=== PATIENT | male | born 1940 | race Caucasian/White ===

== ENCOUNTER 2022-06-07 16:17 | Inpatient (IN) | payer OTHER ==
[~2022-06-07] VITALS: Ht 180.3 cm; Wt 83.9 kg
[~2022-06-07 16:17] MED LIST: ASPI81CH PO; CILOSTAZOL50 M1 PO; CLOP75 PO; IRBESARTAN-HCT1 EAC3 PO; SIMV40 PO
[2022-06-07 16:46] LABS: BASOPHILS ABSOLUTE AUTO 0.01 K/mm3 (0.00-0.23); BASOPHILS PERCENT AUTO 0 % (0-2); EOSINOPHILS PERCENT AUTO 0 % (0-6); Hematocrit 48.8 % (37.0-53.0); Hemoglobin 16.5 g/dL (13.5-17.5); IMMATURE GRAN ABSOLUTE AUTO 0.05 K/mm3 (0.00-0.10); IMMATURE GRAN PERCENT AUTO 1 % (0-1); LYMPHOCYTES ABSOLUTE AUTO 0.62 K/mm3 (0.84-5.20); LYMPHOCYTES PERCENT AUTO 8 % (21-46); MONOCYTES ABSOLUTE AUTO 0.57 K/mm3 (0.16-1.47); MONOCYTES PERCENT AUTO 7 % (4-13); Mean Corpuscular HGB 31.1 pg (26.0-34.0); Mean Corpuscular HGB Conc 33.8 g/dL (31.5-36.5); Mean Corpuscular Volume 92 fL (80-100); Mean Platelet Volume 10.5 fL (9.1-12.4); NEUTROPHILS ABSOLUTE AUTO 6.93 K/mm3 (1.96-9.15); NEUTROPHILS PERCENT AUTO 85 % (41-73); Platelet Count 238 K/mm3 (150-400); RDW Coefficient Variation 14.1 % (11.7-14.2); RDW Standard Deviation 47.8 fL (35.1-46.3); Red Blood Cell Count 5.31 M/mm3 (4.30-5.90); White Blood Cell Count 8.18 K/mm3 (4.00-11.30)
[2022-06-07 17:12] LABS: Albumin, Blood 2.7 g/dL (3.4-5.0); Albumin/Globulin Ratio 0.6 (0.8-1.8); Bilirubin, Total 1.3 mg/dL (0.1-1.0); Bun/Creatinine Ratio 13.8 (12.0-20.0); Calcium, Blood 8.5 mg/dL (8.5-10.1); Creatinine, Blood 1.45 mg/dL (0.60-1.20); Globulin, Blood 4.4 g/dL (2.2-4.0); Potassium, Blood 3.4 mmol/L (3.5-5.5); Total Protein, Blood 7.1 g/dL (6.4-8.2)
[2022-06-07 17:27] LABS: Influenza A, PCR NEGATIVE (NEGATIVE); Influenza B, PCR NEGATIVE (NEGATIVE); Resp Syncytial Virus, PCR NEGATIVE (NEGATIVE)
[2022-06-07 17:34] LABS: SARS-Cov-2 (COVID-19) PCR, MMC POSITIVE (NEGATIVE)
[2022-06-07 18:15] LABS: PCO2 Arterial 25.3 mmHg (35-45); PO2 Arterial 59.7 mmHg (80-100); pH Blood Arterial 7.51 (7.35-7.45)
[2022-06-07] MEDS ORDERED: Bisoprolol Fumar5 MG PO (20:41)
--- NOTE | 2022-06-08 03:14 | NUR ---
SHIFT SUMMARY; PATIENT WAS AN ER ADMIT AT BEGINNING OF NOC SHIFT. HE IS AO X 4. PER REPORT HE CAME FROM HOME VIA EMS. HE WAS SOB AND PER NEIGHBORS WAS CONFUSED. HE IS COVID POSITIVE AND COMPLAINS OF SOB. HE IS CURRENTLY ON 3 LITERS O2. HE DOES NOT HAVE ANY SKIN ISSUES. HIS LUNGS ARE COARSE THROUGHOUT AND HE IS USING PURSED LIP BREATHING. HE USES HIS CALL LIGHT AND IS ABLE TO MAKE HIS NEEDS KNOWN. HE TAKES HIS PILLS WHOLE WITH WATER. HE RECEIVED A STAT CT SCAN TO CHECK FOR PE'S.
[2022-06-08 06:14] LABS: BASOPHILS ABSOLUTE AUTO 0.02 K/mm3 (0.00-0.23); BASOPHILS PERCENT AUTO 0 % (0-2); EOSINOPHILS PERCENT AUTO 0 % (0-6); Hematocrit 45.8 % (37.0-53.0); Hemoglobin 15.5 g/dL (13.5-17.5); IMMATURE GRAN ABSOLUTE AUTO 0.03 K/mm3 (0.00-0.10); IMMATURE GRAN PERCENT AUTO 0 % (0-1); LYMPHOCYTES ABSOLUTE AUTO 0.63 K/mm3 (0.84-5.20); LYMPHOCYTES PERCENT AUTO 9 % (21-46); MONOCYTES ABSOLUTE AUTO 0.48 K/mm3 (0.16-1.47); MONOCYTES PERCENT AUTO 7 % (4-13); Mean Corpuscular HGB Conc 33.8 g/dL (31.5-36.5); Mean Corpuscular Volume 92 fL (80-100); NEUTROPHILS ABSOLUTE AUTO 6.02 K/mm3 (1.96-9.15); NEUTROPHILS PERCENT AUTO 84 % (41-73); Platelet Count 240 K/mm3 (150-400); RDW Coefficient Variation 14.1 % (11.7-14.2); RDW Standard Deviation 48.1 fL (35.1-46.3); White Blood Cell Count 7.18 K/mm3 (4.00-11.30)
[2022-06-08 07:29] LABS: Albumin, Blood 2.5 g/dL (3.4-5.0); Albumin/Globulin Ratio 0.6 (0.8-1.8); Bilirubin, Total 0.9 mg/dL (0.1-1.0); Bun/Creatinine Ratio 15.5 (12.0-20.0); Calcium, Blood 8.7 mg/dL (8.5-10.1); Creatinine, Blood 1.29 mg/dL (0.60-1.20); Globulin, Blood 4.3 g/dL (2.2-4.0); Potassium, Blood 3.7 mmol/L (3.5-5.5); Total Protein, Blood 6.8 g/dL (6.4-8.2)
--- NOTE | 2022-06-08 17:53 | NUR ---
SHIFT SUMMARY PT A&OX4 AND PLEASANT. PT VERBAILZED FEELING "BETTER TODAY" STATING THAT HE HAD MORE STRENGHT IN HIS LEGS AND WAS FEELING LESS SOB. NO C/O PAIN. PT ATE VERY LITTLE BUT STATED THAT IS WAS MORE THAN HE HAS BEEN EATING FOR THE PAST FEW DAYS. PT ABLE TO AMBULATE TO BATHROOM WITH STANDBY ASSIST. BED IN LOWEST POSITION AND CALL LIGHT IN REACH.
--- NOTE | 2022-06-09 04:43 | NUR ---
SHIFT SUMMARY: Pt A/Ox4 and call light appropriate. Pt c/o SOB especially with ambulating. He is currently on 3L NC to maintain O2 saturations >92%. He denies nausea, dizziness, pain, numbness/tingling. He has been having diarrhea. He is ambulating SBA.
[2022-06-09 05:08] LABS: BASOPHILS PERCENT AUTO 0 % (0-2); EOSINOPHILS PERCENT AUTO 0 % (0-6); Hematocrit 45.5 % (37.0-53.0); Hemoglobin 15.6 g/dL (13.5-17.5); IMMATURE GRAN ABSOLUTE AUTO 0.04 K/mm3 (0.00-0.10); IMMATURE GRAN PERCENT AUTO 1 % (0-1); LYMPHOCYTES ABSOLUTE AUTO 0.66 K/mm3 (0.84-5.20); LYMPHOCYTES PERCENT AUTO 11 % (21-46); MONOCYTES ABSOLUTE AUTO 0.56 K/mm3 (0.16-1.47); MONOCYTES PERCENT AUTO 9 % (4-13); Mean Corpuscular HGB 31.2 pg (26.0-34.0); Mean Corpuscular HGB Conc 34.3 g/dL (31.5-36.5); Mean Corpuscular Volume 91 fL (80-100); Mean Platelet Volume 10.1 fL (9.1-12.4); NEUTROPHILS ABSOLUTE AUTO 4.85 K/mm3 (1.96-9.15); NEUTROPHILS PERCENT AUTO 79 % (41-73); Platelet Count 283 K/mm3 (150-400); RDW Coefficient Variation 13.9 % (11.7-14.2); RDW Standard Deviation 46.9 fL (35.1-46.3); White Blood Cell Count 6.11 K/mm3 (4.00-11.30)
--- NOTE | 2022-06-09 05:09 | NUR ---
patient now on 4L of O2.
[2022-06-09 05:51] LABS: Albumin, Blood 2.5 g/dL (3.4-5.0); Albumin/Globulin Ratio 0.6 (0.8-1.8); Bilirubin, Total 0.8 mg/dL (0.1-1.0); Calcium, Blood 8.7 mg/dL (8.5-10.1); Creatinine, Blood 1.23 mg/dL (0.60-1.20); Globulin, Blood 4.2 g/dL (2.2-4.0); Potassium, Blood 3.9 mmol/L (3.5-5.5); Total Protein, Blood 6.7 g/dL (6.4-8.2)
[2022-06-09] MEDS ORDERED: IRBE150 PO (15:24)
[2022-06-09] MEDS ORDERED: FAMO20 PO (15:24)
[2022-06-09] MEDS ORDERED: Prednisone10 MG (15:26)
--- NOTE | 2022-06-09 16:06 | NUR ---
DISCHARGE PT DISCHARGED AFTER HOME O2 WAS DELIVERED. PT DENIED FURTHER QUESTIONS ABOUT NEW MEDS, FOLLOW UP INSTRUCTIONS, AND HOME O2 USE. PT CLEARED BY PHYSICAL THERAPY PRIOR TO DC. IND IN ROOM. PT DOES REQUIRE 6L WITH EXERTION AND 4L AT REST. PT UNDERSTANDS HE NEEDS TO TAKE BREAKS AND INCREASE HIS O2 WHEN MOVING ABOUT. NO OTHER ACUTE CHANGES IN ASSESSMENT PRIOR TO DC. PT WHEELED OUT BY AIDE AND DRIVEN HOME BY FRIEND.
== END 2022-06-09 16:01 | disposition home health service (06) | DRG 177 ==
LOC: ER 16:17 → ERHOLD 20:05 → MEDS 20:05
PROVIDERS: Internal Medicine Endocrinology, Diabetes & Metabolism; Student in an Organized Health Care Education/Training Program; ADMIT Family Medicine
PROC: XW033E5 Introduction of Remdesivir Anti-infective into Peripheral Vein, Percutaneous Approach, New Technology Group 5 (ICD-10-PCS; principal; 2022-06-07)
PROC: 3E0333Z Introduction of Anti-inflammatory into Peripheral Vein, Percutaneous Approach (ICD-10-PCS; 2022-06-07)
PROC: 8E0ZXY6 Isolation (ICD-10-PCS; 2022-06-07)
DX: U07.1 COVID-19 (principal); J12.82 Pneumonia due to coronavirus disease 2019; J96.21 Acute and chronic respiratory failure with hypoxia; N18.30 Chronic kidney disease, stage 3 unspecified; Z66 Do not resuscitate; R79.1 Abnormal coagulation profile; J43.9 Emphysema, unspecified; I12.9 Hypertensive chronic kidney disease with stage 1 through stage 4 chronic kidney disease, or unspecified chronic kidney disease; I70.209 Unspecified atherosclerosis of native arteries of extremities, unspecified extremity; R74.01 Elevation of levels of liver transaminase levels; E78.5 Hyperlipidemia, unspecified; J45.909 Unspecified asthma, uncomplicated; E87.6 Hypokalemia; Z87.891 Personal history of nicotine dependence; Z79.899 Other long term (current) drug therapy; Z79.82 Long term (current) use of aspirin; Z98.890 Other specified postprocedural states; Z90.49 Acquired absence of other specified parts of digestive tract; Z95.828 Presence of other vascular implants and grafts
CPT/HCPCS: 0241U; 36415; 36600; 71046; 71260; 80053; 82803; 83880; 84484; 85025; 85379; 93005; 93010; 94640; 94664; 94760; 94761; 96365; 97112; 97162; 99285-25; A9270; J0248; J1100; J1650; J7050; Q9967

== ENCOUNTER → 2023-05-11 | Outpatient (CLI) | payer OTHER ==
[~2023-05-11] MED LIST changes: +Bisoprolol Fumar5 MG PO; +FAMO20 PO; +IRBE150 PO; +Prednisone10 MG
== END ==
LOC: LAB 12:12 → LAB SHORT 12:12
DX: L82.0 Inflamed seborrheic keratosis (principal)
CPT/HCPCS: 88305